=== PATIENT | female | born 1985 | race Caucasian/White ===

== ENCOUNTER → 2016-04-22 | Outpatient (CLI) | payer MEDICAID | LOC: MW.CHENT 09:37 | PROVIDERS: ATTEND Otolaryngology | DX: R09.81 Nasal congestion (principal); J31.0 Chronic rhinitis | CPT/HCPCS: 36415; 86003 ==

== ENCOUNTER → 2016-06-01 | Outpatient (CLI) | payer MEDICAID ==
[2016-06-01 16:39] LABS: CHLORIDE,CL 107 mmol/L (98-110); SODIUM,NA 139 mmol/L (136-146)
== END | disposition home or self-care (01) ==
LOC: MW.CHFP 15:37
PROVIDERS: ATTEND Physician Assistant
DX: R53.83 Other fatigue (principal)
CPT/HCPCS: 36415; 80053; 82728; 84443; 85025

== ENCOUNTER 2018-05-30 07:36 | Day surgery (SDC) | payer BC ==
[~2018-05-30 07:36] MED LIST: Lactated Ringers 1,000 ML IV SCH; Lidocaine 2% 5 ML SDV ONE; Midazolam 1 MG/ML 2 ML SDV ONE; Ondansetron 4 MG/2 ML SDV ONE; Propofol 200 MG/20 ML SDV ONE; Sodium Chloride 0.9% 10 ML SDV IV PRN; Sodium Chloride 0.9% 10 ML Syringe FLUSH PRN; Sodium Chloride 0.9% 2.5 ML Syringe FLUSH PRN; fentaNYL 250 MCG/5 ML SDV ONE
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
[2018-05-30] MEDS ORDERED: Glycopyrrolate 0.2 MG/ML SDV ONE (09:02)
[2018-05-30] MEDS ORDERED: ePHEDrine 50 MG/ML SDV ONE (09:02)
[2018-05-30] MEDS ORDERED: Albuterol 0.083% 2.5 MG/3 ML Neb Soln NEB PRN (09:05)
[2018-05-30] MEDS ORDERED: Naloxone 0.4 MG/ML Syringe IVPUSH PRN (09:05)
[2018-05-30] MEDS ORDERED: fentaNYL 100 MCG/2 ML SDV IVPUSH PRN (09:05)
[2018-05-30] MEDS ORDERED: Atropine 0.1 MG/ML 10 ML Syringe IVPUSH PRN ×2 (09:05)
[2018-05-30] MEDS ORDERED: EPINEPHrine 1:10,000 1 MG/10 ML Syringe IVPUSH PRN (09:05)
[2018-05-30] MEDS ORDERED: 50% Dextrose in Water 50 ML Syringe IVPUSH PRN (09:05)
[2018-05-30] MEDS ORDERED: Ketorolac 30 MG/ML SDV IVPUSH ONE (09:23)
--- NOTE | 2018-05-30 09:26 | PCM.OPNOTE ---
- General Post-Op/Procedure Note Date of Surgery/Procedure: 05/30/18 Operative Procedure(s): Diagnostic hysteroscopy, curretage of endometrium, thermal endometrial ablation Findings: 8 cm depth, normal appearing uterine cavity Pre Op Diagnosis: Menorrhagia Post-Op Diagnosis: Same Anesthesia Technique: General LMA Primary Surgeon: Liseth Lopez Fluid Replacement, Intraop: 1,000 (FLuid deficit 60 mL) EBL in mLs: 5 Complications: None known Condition: Good Free Text/Narrative:: Dictation [id number]
--- NOTE | 2018-05-30 09:42 | PCM.POSTAN ---
POST ANESTHESIA ASSESSMENT - MENTAL STATUS Mental Status: Alert, Oriented - RESPIRATORY Respiratory Status: Respiratory Rate WNL, Airway Patent, O2 Saturation Stable - CARDIOVASCULAR CV Status: Pulse Rate WNL, Blood Pressure Stable - GASTROINTESTINAL GI Status: No Symptoms - PAIN Pain Score: 2 - POST OP HYDRATION Hydration Status: Adequate & Stable - OBSERVATIONS Free Text/Narrative:: The patient tolerated the procedure well. There were no apparent anesthetic complications at this time.
--- NOTE | 2018-05-30 10:51 | PCM48HPAN ---
Post Anesthesia Note - EVALUATION WITHIN 48HRS OF ANESTHETIC Vital Signs in Normal Range: Yes Patient Participated in Evaluation: Yes Respiratory Function Stable: Yes Airway Patent: Yes Cardiovascular Function Stable: Yes Hydration Status Stable: Yes Pain Control Satisfactory: Yes Nausea and Vomiting Control Satisfactory: Yes Mental Status Recovered: Yes Resp Rate: 12 - COMMENTS/OBSERVATIONS Free Text/Narrative:: The patient has no complaints at this time, and wants to go home. there were no apparent anesthetic complications at this time. Discharge home per criteria.
[2018-05-30 11:10] VITALS: BP 112/67
--- NOTE | 2018-05-30 12:07 | OR ---
SURGEON: Liseth Lopez M.D. DATE OF PROCEDURE: 05/30/2018 PREOPERATIVE DIAGNOSIS: Menorrhagia. POSTOPERATIVE DIAGNOSIS: Menorrhagia. PROCEDURES: Diagnostic hysteroscopy, curettage of endometrium, and thermal endometrial ablation. ANESTHESIA: General LMA. ESTIMATED BLOOD LOSS: 5 mL. FLUIDS: 1000 mL of crystalloid. FLUID DEFICIT: From hysteroscopy is 60 mL crystalloid. DISPOSITION: The patient to PACU, stable. FINDINGS: Normal-appearing uterine cavity. No endometrial lesions. PROCEDURE DETAILS: Tiffanie is a 32-year-old female, who has ongoing difficulties with menorrhagia. Endometrial biopsy was benign. Options had been discussed with her, and she would like to proceed with thermal endometrial ablation. She has consented to a hysteroscopy, D and C, and thermal endometrial ablation. After proper consent had been signed, the patient was taken to the operating room where she underwent general LMA, was placed in modified dorsal lithotomy position, and was prepped and draped in the usual sterile fashion. Bladder was drained. SCDs to lower extremities. A time-out was performed. Speculum was introduced in the vagina. Anterior lip of cervix was grasped with Allis clamps. Cervix now gently dilated to 6 mm. Hysteroscope was introduced. Using normal saline as distention media, I was able to visualize the uterine cavity. Right ostia, left ostia, and remainder of the cavity were able to be visualized. Photographs taken. No intracavitary lesions were identified. Therefore, hysteroscope was removed. Gentle curettage was performed. Curettings will be sent to Pathology for further analysis. The Wilma endometrial device was now prepped according to food and beverage intern's protocol. The settings were placed for the patient specifically. The instrument was introduced in the uterine cavity. Arms were opened at the fundus. Balloon was insufflated and integrity tests were passed. Therefore, a 120-second ablative process was performed. At the completion of this, the arms were released, the balloon was deflated, and the device removed from the uterine cavity. The cervix was inspected, hemostasis was evident. All instruments were removed from the vagina. Sponge and instrument counts were correct x2. The patient tolerated the procedure well. She will go to PACU in stable condition. Specimen to Pathology. YOLANDA / MARINO /[id number]
== END 2018-05-30 10:54 | disposition home or self-care (01) ==
LOC: MW.SDS 07:36
PROVIDERS: ATTEND Obstetrics & Gynecology
DX: N92.0 Excessive and frequent menstruation with regular cycle (principal); Z88.2 Allergy status to sulfonamides; Z79.899 Other long term (current) drug therapy
CPT/HCPCS: 36415; 58563; 84703; 85027; J1885; J2001; J2250; J2405; J2704; J3010; J3490; J7120; 00952; 88305

== ENCOUNTER 2019-03-01 16:21 | Emergency (ER) | payer BC ==
[2019-03-01 17:16] VITALS: BP 104/61; PULSE 95
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
== END 2019-03-01 17:59 | disposition home or self-care (01) ==
LOC: MW.ED 16:21
DX: J02.0 Streptococcal pharyngitis (principal); Z88.1 Allergy status to other antibiotic agents; Z88.2 Allergy status to sulfonamides
CPT/HCPCS: 87880-QW; 99283

== ENCOUNTER 2024-10-20 20:35 | Emergency (ER) | payer BC ==
[2024-10-20 21:31] LABS: BASOPHILS ABSOLUTE AUTO 0.04 K/uL (0.00-0.20); BASOPHILS PERCENT AUTO 0.7 % (0.0-1.0); EOSINOPHILS ABSOLUTE AUTO 0.33 K/uL (0.00-0.45); EOSINOPHILS PERCENT AUTO 6.0 % (0.0-6.0); IMMATURE GRAN ABSOLUTE AUTO 0.02 K/uL (0.00-0.05); IMMATURE GRAN PERCENT AUTO 0.4 % (0.0-0.4); LYMPHOCYTES ABSOLUTE AUTO 1.47 K/uL (1.00-4.80); LYMPHOCYTES PERCENT AUTO 26.8 % (24.0-44.0); MEAN PLATELET VOLUME 10.3 fL (9.4-12.3); MONOCYTES ABSOLUTE AUTO 0.48 K/uL (0.00-0.80); MONOCYTES PERCENT AUTO 8.8 % (0.0-8.0); NEUTROPHILS ABSOLUTE AUTO 3.14 K/uL (1.80-7.70); NEUTROPHILS PERCENT AUTO 57.3 % (41.0-71.0); NRBC ABSOLUTE 0.00 K/uL (0.00-0.02); NRBC PERCENT 0.0 /100WBC (0.0-0.2); PLATELET COUNT,PLT 168 K/uL (150-400); RED BLOOD CELL COUNT 4.29 M/uL (4.10-5.30); WHITE BLOOD CELL COUNT,WBC 5.48 K/uL (3.9-11.3)
[2024-10-20 21:32] LABS: APPEARANCE,URINE CLEAR; GLUCOSE,URINE NEGATIVE (NEGATIVE); OCCULT BLOOD,URINE NEGATIVE (NEGATIVE)
[2024-10-20 22:03] LABS: A/G RATIO 1.3 (0.9-1.6); ALANINE AMINOTRANSFERASE,ALT 61 IU/L (14-63); ASPARTATE AMNIOTRANSFERASE,AST 27 IU/L (15-37); BILIRUBIN TOTAL 0.3 mg/dL (0.2-1.0); BLOOD UREA NITROGEN,BUN 14 mg/dL (7.0-18.0); CARBON DIOXIDE,CO2 27.7 mmol/L (21.0-32.0); CHLORIDE,CL 101 mmol/L (98-107); CREATININE 0.9 mg/dL (0.6-1.0); EST CRCL DRUG DOSING (CG) 77.35 mL/min; GLUCOSE RANDOM 90 mg/dL (74-106); POTASSIUM,K 4.1 mmol/L (3.5-5.1); PROTEIN TOTAL,TP 7.3 g/dL (6.4-8.2); SODIUM,NA 136 mmol/L (136-145); TSH ULTRASENSITIVE 1.96 uIU/mL (0.36-3.74)
[2024-10-20 22:06] LABS: ESTIMATED GFR 83 mL/min (>60)
[2024-10-20 23:32] VITALS: BP 107/64; PULSE 59
== END 2024-10-20 23:15 | disposition home or self-care (01) ==
LOC: MW.ED 20:35
DX: E86.0 Dehydration (principal); Z88.8 Allergy status to other drugs, medicaments and biological substances
CPT/HCPCS: 36415; 80053; 81003; 84443; 84484; 84703; 85025; 93005; 96360; 99283; J7030